=== PATIENT | male | born 1945 | race Caucasian/White ===

== ENCOUNTER 2016-06-05 00:41 | Emergency (ER) | payer MEDICARE, OTHER ==
[2016-06-05] VITALS (10 sets, daily range): BP systolic 99–127; BP diastolic 71–84; PULSE 76–101; RESP 10–20; O2SAT 93–99
[~2016-06-05] VITALS: Ht 180.3 cm; Wt 105.5 kg
[~2016-06-05 00:41] MED LIST: METH-313 PO
--- NOTE | 2016-06-05 01:16 | ED.REPORT ---
HPI-Back Pain 40 and Over Date of Service Jun 05, 2016 ED Provider: Dr. Manoj Kate D.O. A 70 year old male with a history of diabetes, COPD, heart disease, spinal stenosis, and chronic back pain presents to the ED with increased chronic upper and lower back pain this evening. The patient also reports chronic leg weakness , muscle spasms, and nausea secondary to pain. He denies pain with inspiration, chest pain, or cough. He has been taking oxycodone and morphine intermittently for pain but he is concerned about the risk for addiction. Today he is having pain and muscle spasm in his low back that seems to radiate up into his chest and to his abdomen. He denies having any ripping or tearing pain. Nursing Notes Stated Complaint: BACK PAIN Chief Complaint: Back Pain or Injury Nursing Notes Reviewed: Yes Allergies: Coded Allergies: No Known Allergies (Verified Allergy, Unknown, 06/05/16) Scheduled Methocarbamol (Robaxin-750) 750 Mg Tablet 1,500 MG PO QID General Time Seen by MD: 01:16 Chief Complaint Back pain Hx Obtained From: Patient Arrived By: Walk-in Sudden in Onset?: No Onset Occurred: Onset unknown (Chronic) Symptom Duration: Intermittent Caused by: Spontaneous/no mechanism Location: : Perispinal lumbar: Perispinal thoracic Quality: Painful Severity: Current: Moderate Severity: Maximum: Moderate Associated with: Reports: Nausea, Weakness both lower ext Pertinent Negative: Relieved by nothing Related History: Reports: Chronic back pain Recent Healthcare: No recent doctor visit Similar Sx Previous: Yes Past Medical History Past Medical History Diabetes COPD Heart Disease Spinal Stenosis Pneumothorax Past Surgical History Back surgery Smoking History Former Smoker Social History Alcohol Use: Denies alcohol use Drug Use: Denies drug use Ambulatory Status Independent Review of Systems Review of Systems Note: + muscle spasms Constitutional: Denies: Fever Respiratory: Denies: Dyspnea on exertion, Non-productive cough, Pleuritic pain Cardiovascular: Denies: Chest pain GI: Reports: Abdominal pain, Nausea Male: Denies Incontinence, Denies Urination decreased, Denies Urination increased Musculoskeletal: Reports: Back pain Neurologic: Reports: Weakness (Bilateral legs ), Denies: Bladder dysfunction, Bowel dysfunction, Numbness Complete sys rev & neg: except as marked. Physical Exam Initial Vital Signs Vital Signs (First) Date Time Temp Pulse Resp B/P Pulse Ox O2 Delivery O2 Flow Rate FiO2 06/05/16 00:48 101 20 127/82 97 Room Air 06/05/16 04:22 36.6 Initial VS: Reviewed Head / Eyes: Atraumatic, Normocephalic ENT: Conjunctiva normal, No scleral icterus Neck: Supple, Full range of motion Skin: Warm, Dry, No cyanosis Psychiatric: Mood/affect normal, Behavior normal, Normal thought content General/Constitutional: Awake, Alert, No acute distress Respiratory / Chest: Breath sounds NL, Breath sounds = bilat, No respiratory distress Cardiovascular: Heart rate NL, Regular rhythm, Heart sounds NL Abdomen: Soft Tenderness/Guarding/Rebound: Positive: Tender periumbilical (Right) Back: No midline vertebral tend Flank / Spine / Paraspinal: Positive: Lumbar paraspinal tend... (Right) Neurologic: Oriented X3, Speech NL, No motor deficits, No sensory deficits Interpretation & Diagnostics Interpretation & Diagnostics: Bedside bladder scan: >1L LUMBAR SPINE MRI IMPRESSION: 1. Multilevel degenerative disc disease. 2. Multilevel facet arthropathy. 3. Severe L4-L5 central canal stenosis. Moderate to severe L3-L4 central canal narrowing. Moderate L2-L3 central canal narrowing. 4. Mild bilateral L1-L2 neural foraminal narrowing. Moderate bilateral to L3 neural foraminal narrowing. Severe bilateral L3-L4 neural foraminal narrowing. Moderate right and severe left L4-L5 neural foraminal narrowing. Mild left L5- S1 neural foraminal narrowing. Dictated by: Ivone Randhawa MD, PhD on 06/05/2016 at 9:51 Approved by: Ivone Randhawa MD, PhD on 06/05/2016 at 9:51 Lab Results Interpretation Result Diagram: 06/05/16 0230 06/05/16 0230 Test 06/05/16 02:30 06/05/16 04:52 White Blood Count 8.4th/mm3 (3.8-10.1) Red Blood Count 4.48mil/mm3 (4.40-5.80) Hemoglobin 14.8g/dL (13.8-17.2) Hematocrit 41.4% (41.0-50.0) Mean Corpuscular Volume 92.4fL (81-100) Mean Corpuscular Hemoglobin 33.0pg (27.0-35.0) Mean Corpuscular Hemoglobin Concent 35.7% (32.0-37.0) Red Cell Distribution Width 12.9% (12.3-15.4) Platelet Count 150bil/L (150-400) Neutrophils (%) (Auto) 41.0% (40-74) Lymphocytes (%) (Auto) 46.7% (14-46) Monocytes (%) (Auto) 9.0% (4-12) Eosinophils (%) (Auto) 2.8% (0-5) Basophils (%) (Auto) 0.4% (0-3) D-Dimer < 0.5mg/L (<0.50) Sodium Level 136mEq/L (134-144) Potassium Level 3.9mEq/L (3.5-5.2) Chloride Level 97mEq/L (97-108) Carbon Dioxide Level 22mmol/L (18-29) Blood Urea Nitrogen 19mg/dL (8-27) Creatinine 0.79mg/dL (0.76-1.27) Estimat Glomerular Filtration Rate 103mL/min (>59) Glucose Level 271mg/dL (60-99) Calcium Level 9.2mg/dL (8.5-10.1) Total Bilirubin 0.9mg/dL (0.0-1.2) Aspartate Amino Transf (AST/SGOT) 38U/L (0-50) Alanine Aminotransferase (ALT/SGPT) 51U/L (0-44) Alkaline Phosphatase 93U/L (25-160) Troponin T 0.010ug/L (0.0-0.011) Total Protein 6.7g/dL (6.4-8.4) Albumin 3.7g/dL (3.4-5.0) Urine Color Yellow (YELLOW) Urine Appearance Clear (CLEAR,HAZY) Urine pH 6.0 (5.0-8.0) Urine Specific [place] 1.045 (1.003-1.035) Urine Protein Negativemg/dL (NEG,TRACE) Urine Glucose (UA) 1000mg/dL (NEGATIVE) Urine Ketones Negativemg/dL (NEGATIVE) Urine Occult Blood Negative (NEGATIVE) Urine Nitrite Negative (NEGATIVE) Urine Bilirubin Negative (NEGATIVE) Urine Urobilinogen Normalmg/dL (NORMAL) Urine Leukocyte Esterase Negative (NEGATIVE) Urine RBC 0-2/hpf (0-2) Urine WBC 0-5/hpf (0-5) Urine Epithelial Cells Few/hpf (NONE-MOD) Urine Crystals None seen (NONE SEEN) Urine Bacteria None/hpf (NONE-FEW) Urine Hyaline Casts None/lpf (NONE) Urine Granular Casts None seen (NONE SEEN) Urine Waxy Casts None seen (NONE SEEN) Urine Red Blood Cell Casts None seen (NONE SEEN) Urine White Blood Cell Casts None seen (NONE SEEN) Urine Mucus None seen (None Seen) Urine Trichomonas None seen (NONE SEEN) Urine Yeast None (NONE SEEN) Urinalysis Comment None Urine Culture Reflexed Not indicated Hold Urine Received (Received) ECG Interpretation ECG Interpretation: Sinus rhythm rate 83 Low voltage, extremity leads Time: 01:42 Interpreted by: ED physician CT Abd / Pelvis Interpretation CONCLUSION: Distended urinary bladder is nonspecific, may be physiologic, cannot rule out urinary retention. Mild prostatomegaly. Liver cyst and bilateral renal cysts. Radiologist: Elizabeth Walker MD 06/05/2016 - 3:58:45 AM PST Study type: Abdominal CT IV contrast Interpretation / Wet Read by: Interpret - Radiologist Re-Eval/Medical Decision Med Decision/Clinical Course 70-year-old with known spinal stenosis presents with odd back pain symptoms improved to have significant urinary retention that is new. He has no renal failure resulting. He is held this morning for MRI to exclude conus medullaris lesion. He is signed over at [address] Ayan Botello DO: I assumed care of this patient at 6 AM, awaiting an MRI. MRI is performed and discussed with the patient's primary neurosurgeon who feels the patient likely needs emergent decompression and spinal fusion which cannot be performed at this hospital. Neurosurgery recommends transfer to [facility]. Also the patient is transferred to [facility]. 70-year-old male with chronic spinal stenosis presents with low back pain radiating up his back. He states that he has oxycodone and morphine at home and he is not going to take these due to their addiction potential. He states the pain is pretty severe tonight and anytime she twists or falls asleep he feels spasm in his back. On examination vital signs are stable. Normal cardiopulmonary examination. He does have some periumbilical abdominal tenderness. I do not palpate a bruit. He has some paraspinal tenderness of the lower lumbar region. Range of motion of his back especially twisting worsens the pain. He does not have signs of an acute cauda equina syndrome. He has no saddle anesthesia, he has symmetric reflexes and he has excellent strength of his legs. He tells me that he has control of his rectum and he has been able to empty his bladder. The back pain radiating to his chest may well be related to thoracic spine disease however taking into account his age we performed an EKG. EKG does not show signs of ischemia. Regard to check a CBC comp is a metabolic panel troponin and d-dimer. I think the d-dimer is elevated and pulmonary emboli or aortic dissection needs to be looked into. N this is due to the fact that he has pain going up and down his back and into his thoracic spine. I dissection could certainly cause this. I have medicated with IV Toradol and is feeling much better. Laboratory work is pending at the time of this discharge. I will sign this case out to Dr. Cortez Prater. Source of Hx: Old records Re-Evaluation/Progress #1: Time of Eval: 02:10 Patient Status: Condition improved Re-Evaluation/Progress Note: Patient rechecked. Discussed diagnosis and plan for transfer of care to Dr. Prater. Patient agrees with plan for care and all questions were addressed. Re-Evaluation/Progress #2: Time of Eval: 04:08 Patient Status: Condition improved Re-Evaluation/Progress Note: Care assumed by Dr. Prater. Rechecked the patient. Discussed the results of his CT scan, with a distended bladder on CT scan. Patient was able to void when requested but stated that he did not feel the urge to go prior to being asked. The patient feels that he has emptied his bladder, producing 400cc. He denies urinary retention, urinary incontinence, bowel incontinence, numbess in his extremities, saddle numbness, or other complaints. He does often fall, which he states is due to his old back injury. Will bladder scan the patient. Re-Evaluation/Progress #3: Time of Eval: 04:53 Re-Evaluation/Progress Note: Patient was found to be retaining 1L urine on bladder scan. Catheter was placed. Patient was informed that due to his urinary retention he will need to have an MRI to rule out any acute process for his symptoms tonight. MRI will not occur until later this morning. Patient understands and agrees with this plan. All questions addressed. Re-Evaluation/Progress #4: Time of Eval: 13:55 Re-Evaluation/Progress Note: Informed the patient of the plan to transfer to [facility], per MRI results. Patient understands and agrees with this plan. All questions addressed. Consultation #1: Referral / Consult Name: нАдрей Tellez MD Consulted With: Neurosurgery Call Returned at: 10:20 Manager Security And Safety: Agrees with eval Note: Case discussed. Geoff will call back. Consultation #2: Referral / Consult Name: Андрей Tellez MD Consulted With: Neurosurgery Call Returned at: 10:32 Manager Security And Safety: Agrees with eval, Agrees with plan Note: Geoff called back. Question of C-spine lesion, plan to send patient to [facility], as would need fusion. Consultation #3: Referral / Consult Name: Андрей Tellez MD Consulted With: Neurosurgery Call Returned at: 11:40 Manager Security And Safety: Agrees with eval, Agrees with plan, Accepts admit Note: Dr. Rony Pearson at [facility] will accept patient. Consultation #4: Call Returned at: 13:35 Manager Security And Safety: Agrees with eval, Agrees with plan Note: Transfer center called back and patient can be sent down. Counseled Regarding: Diagnosis, Lab results, Need for transfer Discharge & Departure Shift Change Sign-Out Patient Care Transferred: Yes (Dr. Prater) Discussed Complaint(s): Yes Laboratory Evaluation: Ordered, not yet done Response to Therapy: Improved Additonal Information: Awaiting MRI Impression: Primary Impression: Low back pain Chronicity: chronic Back pain laterality: midline Sciatica presence: with sciatica Sciatica laterality: bilateral sciatica Qualified Code: M54.41 - Lumbago with sciatica, right side Additional Impressions: Mid back pain Urinary retention Disposition: Transfer, Acute Care Facility Receiving Hospital: [facility] Transfer Accepted: Yes Transfer Reason: Higher level of care Spoke with: Specialty physician Patient Status: Stable Patient Informed: Yes Discharge Condition All VS Reviewed: Yes Condition: Stable Patient Instructions: Urinary Retention in Men (ED) Referrals: [facility] Care Transferred to: Dr. Prater 0300 Dr. Botello 0600 Scribe Attestation Portions of this note were transcribed by Colette Dolan and Kenzie Chavez. I, Dr. Kate and Dr. Prater, personally performed the history, physical exam, and medical decision-making; I reviewed and confirmed the accuracy of the information in the transcribed note. Signed by: Tomasa Nuñez, 06/05/2016, 02:45 Signed by: Tomasa Greenberg, 06/05/2016, 23:05 copies to: [facility] Manoj Kate DO Jun 05, 2016 01:16 COLETTE DOLAN Jun 05, 2016 01:30 Kenzie Chavez Jun 05, 2016 03:31 Cortez Prater MD Jun 05, 2016 06:17 TIMMY ESQUIVEL Jun 05, 2016 15:04 Pawel Botello DO Jun 05, 2016 15:13
[2016-06-05 02:37] LABS: BASOPHILS % (AUTO) 0.4 % (0-3); EOSINOPHILS % (AUTO) 2.8 % (0-5); Mean Corpuscular Volume 92.4 fL (81-100); Platelet Count 150 bil/L (150-400)
[2016-06-05 03:11] LABS: TROPONIN T 0.01 ug/L (0.0-0.011)
[2016-06-05] MEDS ORDERED: Lidocaine 2% 5 mL Urojet Topical Jelly Syringe MUC_MEMBRM ONE (04:25)
[2016-06-05] MEDS ORDERED: Lidocaine 2% 6mL Topical Jelly ONE (04:28)
[2016-06-05 07:47] LABS: APPEARANCE,URINE CLEAR (CLEAR,HAZY); COLOR,URINE YELLOW (YELLOW); OCCULT BLOOD,URINE NEGATIVE (NEGATIVE); UROBILINOGEN,URINE NORMAL (NORMAL)
--- NOTE | 2016-06-05 08:32 | DRSVH ---
PROCEDURE: CT ABDOMEN AND PELVIS WITH CONTRAST ([id number]) INDICATIONS: abdo pain TECHNIQUE: After the administration of intravenous contrast, 5 mm thick sections acquired from the diaphragm to the symphysis. 5 mm coronal and sagittal reformats were acquired. For radiation dose reduction, the following was used: automated exposure control, adjustment of mA and/or kV according to patient siz e. COMPARISON: None. FINDINGS: Image quality: Excellent. ABDOMEN: Lung bases: 3 mm nodules noted along the right minor fissure on series 3 image 2, 2 mm nodules presen t in the right middle lobe on series 3 image one. No priors are available for comparison. Solid organs: Liver is enlarged with fatty infiltration. The spleen is normal in size. 4.0 cm low at tenuation anterior hepatic focus most suggestive of cyst. Gallbladder has been removed. Biliary sys tem is non dilated. Pancreas enhances normally. No adrenal nodules. Kidneys demonstrate normal siz e and enhancement, without hydronephrosis. Bilateral renal cysts are present. Peritoneum and bowel: Bowel loops demonstrate normal wall thickness and caliber. No free fluid or a ir. Nodes and vessels: No retroperitoneal or mesenteric adenopathy by size criteria. Aorta and inferior vena cava are normal in size. Miscellaneous: No ventral hernias. PELVIS: Genitourinary: Bladder wall markedly distended. The prostate gland is mildly enlarged. Miscellaneous: No inguinal hernias or adenopathy. Bones: No suspicious bony lesions. No vertebral body compression fractures. IMPRESSION: 1. No visualize cause of acute abdominal pain. 2. Mild hepatomegaly with steatosis. 3. Markedly distended bladder as well as prostate enlargement. Recommend clinical correlation of pote ntial outlet obstruction. 4. Hepatic and renal cysts. 5. Nonspecific subcentimeter pulmonary nodules as above without priors available for comparison. Dwight mmend interval followup is below. Fleischner Society criteria for lung nodule followup. Nodule size (mm)Low-risk patientHigh-risk patient<=4No follow-up needed.Follow-up at 12 months; if no change, no further follow-up.>7-3Dxehjy-op CT at 12 months; if no change, no further follow-up neede d.Initial follow-up CT at 6-12 months, then 18-24 months if no change.>6-8Initial follow-up CT at 6- 12 months, then 18-24 months if no change.Initial follow-up CT at 3-6 months, then 9-12 months and 24 months if no change.>8Follow-up CT at 3,9 and 24 months or PET and/or biopsySame as for low-risk patientsNon-solid (ground-glass) or partly solid nodules may require longer follow-up to exclude indolent adenocarcinoma. Dictated by: Chrissy Farrell M.D. on 06/05/2016 at 8:30 Approved by: Chrissy Farrell M.D. on 06/05/2016 at 8:30
--- NOTE | 2016-06-05 09:53 | DRSVH ---
PROCEDURE: MRI LUMBAR SPINE WITHOUT CONTRAST ([id number]) INDICATIONS: acute urinary retention, chronic back pain TECHNIQUE: Noncontrast sagittal T1 spin echo and T2 fast echo, sagittal STIR, axial T1 and T2 fast spin echo thr ough the lumbar spine. In cases with scoliosis, additional coronal T2 fast spin echo may be performe d. COMPARISON: [facility], CT, CT LUMBAR SPINE WO CON, 01/26/2016, 12:18. Outside Film, MR, MR LUMBAR SPINE WO CON, 10/21/2011, 13:03. Outside Film, MR, MR LUMBAR SPINE WO CON, 11/02/2012, 16:4 8. [facility], MR, MR LUMBAR SPINE W&WO CON, 10/05/2015, 13:41. [facility], CR, XR LUMBAR SPINE LAT FL EX 3VW, 04/19/2016, 10:42. FINDINGS: Image quality: Excellent. Alignment and Curvature: There is mild L2-L3 and L3 on L4 retrolisthesis. There is mild L4-L5 mendoza listhesis. Convex left curvature lumbar spine is stable compared to prior CT scan. Bone Marrow: Reactive endplate change is noted adjacent to the L1-L2, L2-L3, L3-L4, L4-L5 and L5-S1 d iscs. No acute vertebral body compression fractures. Spinal Cord: Conus medullaris terminates at the L1 level. Visualized cord demonstrates normal signa l and size. Paraspinous Soft Tissues: No paravertebral masses. L1-L2: Loss of disc signal and height. Mild, diffuse disc bulge with small central disc extrusion sup erimposed upon diffuse disc bulge. Mild bilateral facet hypertrophy. No central stenosis. Mild bilate ral neural foraminal narrowing. No neural impingement. L2-L3: Loss of disc signal and height. Mild, diffuse disc bulge and small right central disc extrusio n superimposed upon diffuse disc bulge. Mild facet and mild ligamentum flavum hypertrophy. Moderate n arrowing of the central canal secondary to disc disease and posterior element hypertrophy. Moderate b ilateral neural foraminal narrowing secondary to disc and facet disease. No neural impingement. L3-L4: Loss of disc signal and height. Moderate, diffuse disc bulge. Mild facet and moderate ligament um flavum hypertrophy. Moderate to severe narrowing of the central canal secondary to disc disease an d posterior element hypertrophy. Severe bilateral neural foraminal narrowing secondary to disc and fa cet disease with flattening deformity the L3 nerve roots bilaterally. L4-L5: Loss of disc signal. Mild, diffuse disc bulge. Small central disc protrusion superimposed on d iffuse associated severe facet and ligamentum flavum hypertrophy. Severe central stenosis secondary t o disc disease and posterior element hypertrophy. Moderate right and severe left neural foraminal deb rowing degenerative disc and facet disease with flattening deformity exiting left L4 nerve root. L5-S1: Near complete loss of the substance. Minimal, diffuse disc bulge. Posterior osseous fusion is noted. No central stenosis. Mild left neural foraminal narrowing secondary to disc disease. No neural impingement. IMPRESSION: 1. Multilevel degenerative disc disease. 2. Multilevel facet arthropathy. 3. Severe L4-L5 central canal stenosis. Moderate to severe L3-L4 central canal narrowing. Moderate L2 -L3 central canal narrowing. 4. Mild bilateral L1-L2 neural foraminal narrowing. Moderate bilateral to L3 neural foraminal narrowi ng. Severe bilateral L3-L4 neural foraminal narrowing. Moderate right and severe left L4-L5 neural fo raminal narrowing. Mild left L5-S1 neural foraminal narrowing. Dictated by: Ivone Randhawa MD, PhD on 06/05/2016 at 9:51 Approved by: Ivone Randhawa MD, PhD on 06/05/2016 at 9:51
== END 2016-06-05 15:09 | disposition short-term general hospital (02) ==
LOC: SED 00:41
DX: M54.41 Lumbago with sciatica, right side (principal); M54.42 Lumbago with sciatica, left side; R33.9 Retention of urine, unspecified; R53.1 Weakness; M62.830 Muscle spasm of back; R11.0 Nausea; J44.9 Chronic obstructive pulmonary disease, unspecified; E11.9 Type 2 diabetes mellitus without complications; Z87.891 Personal history of nicotine dependence
CPT/HCPCS: 36415; 51702; 72148; 74177; 80053; 81000; 82948; 84484; 85025; 85379; 93005; 96374; 99285; Q9967

== ENCOUNTER 2016-08-05 08:09 | Emergency (ER) | payer OTHER ==
[~2016-08-05] VITALS: Ht 180.3 cm; Wt 102.7 kg
[2016-08-05 08:14] VITALS: BP 129/85; PULSE 81; RESP 18; O2SAT 98
--- NOTE | 2016-08-05 08:29 | ED.REPORT ---
HPI-Recheck W/B/S Date of Service Aug 05, 2016 ED Provider: John Conway MD 70 year old male with a history of spinal stenosis presents to the ER requesting staple and suture removal status post back surgery 06/06/2016. He was seen in follow-up with an TRAFFIC REPORTER and later found out that she was supposed to remove his sutures/bryon at that appointment. Patient was then seen by his primary care provider for similar, but his doctor declined to remove sutures/ bryon that were not placed by him. Next month he has a follow-up appointment with his surgeon. Nursing Notes Stated Complaint: SUTURE REMOVAL Chief Complaint: Wound Recheck/Suture Removal Nursing Notes Reviewed: Yes Allergies: Coded Allergies: No Known Allergies (Verified Allergy, Unknown, 06/05/16) Scheduled Methocarbamol (Robaxin-750) 750 Mg Tablet 1,500 MG PO QID General Time Seen by Provider: 08:28 Chief Complaint Wound check, Suture removal, Staple removal Hx Obtained From: Patient Arrived By: Walk-in Past Medical History Past Medical History Diabetes COPD Heart Disease Spinal Stenosis Pneumothorax Past Surgical History Back surgery Smoking History Former Smoker Social History Alcohol Use: Denies alcohol use Drug Use: Denies drug use Ambulatory Status Independent Review of Systems Constitutional: Denies: Chills, Fever Skin: Denies Diaphoresis Complete sys rev & neg: except as marked. GI: Denies: Nausea, Vomiting Musculoskeletal: Reports: Back pain, Lumbar pain Physical Exam Initial Vital Signs Vital Signs (First) Date Time Temp Pulse Resp B/P Pulse Ox O2 Delivery O2 Flow Rate FiO2 08/05/16 08:14 36.1 81 18 129/85 98 Initial VS: Reviewed General/Constitutional: Well-developed, Well-nourished Head / Eyes: Atraumatic, Normocephalic Neck: Supple, Non-tender, Full range of motion Neurologic: Alert, Oriented, Nonfocal Psychiatric: Mood/affect normal, Behavior normal, Normal thought content Back: Full range of motion 10cm well-healed midline scar with bryon 2cm laterally to the Right at the bottom. Upper Extremity / MS: Atraumatic, Full range of motion, Neurologic intact, Vascular intact Lower Extremity / Pelvis / MS: Atraumatic, Full range of motion, Neurologic intact, Vascular intact Procedures Suture Removal Time: 08:48 Procedure Performed by: ED physician Wound Condition: Good healing, No sign of infection Number Removed: Removed bryon (2), Removed sutures (running stitch approximately 10cm) Re-Eval/Medical Decision Re-Evaluation/Progress : Time of Eval: 08:49 Re-Evaluation/Progress Note: Completed suture and staple removal. Discussed plan to discharge. Patient is amenable to the plan. Return precautions given. All other questions addressed. Counseled Regarding: Diagnosis, Need for follow-up, When/why to return to ED Discharge & Departure Departure Notes Surgery performed in late May. Wound is well-healed. Zavalla and sutures removed without difficulty. Impression: Primary Impression: Encounter for wound re-check Disposition: Home Discharge Condition All VS Reviewed: Yes Condition: Stable Referrals: NOPCP (PCP) Scribe Attestation Portions of this note were transcribed by Iron Alexandre. I, Dr. Conway, personally performed the history, physical exam and medical decision-making; I reviewed and confirmed the accuracy of the information in the transcribed note. Signed by: Tomasa Antony, 08/05/2016 and 08:54 John Conway MD Aug 05, 2016 08:29 IRON ALEXANDRE Aug 05, 2016 08:36
== END 2016-08-05 09:12 | disposition home or self-care (01) ==
LOC: SED 08:09
DX: Z48.02 Encounter for removal of sutures (principal)

== ENCOUNTER 2016-08-19 05:00 | Emergency (ER) | payer OTHER ==
[2016-08-19 05:10] VITALS: BP 130/86; PULSE 89; RESP 18; O2SAT 97
--- NOTE | 2016-08-19 06:16 | ED.REPORT ---
HPI-Back Pain 40 and Over Date of Service Aug 19, 2016 ED Provider: Mariposa Cisse MD The patient is a 71 year old male with history of chronic back and neck pain with spinal stenosis, and diabetes mellitus on insulin, who presents to the emergency department complaining of a headache, neck pain, and lower back pain. He was seen here in May for worsening back pain and was transferred to [facility] for emergency surgery. He was previously on morphine and 5 mg oxycodone for pain. He felt that the doses were too much and when they didn't change this he complained and was then completely cut off. He has been out of his medication for the last 2 weeks. He states that he was actually only taking about 1 hydrocodone every other day. Today he presents to the emergency department complaining of pain that has been worsening over the last few weeks. He is requesting something to relieve this pain. He denies any known injury or trauma. The pain does not radiate anywhere else. He has experienced some nausea. He denies fever, vomiting, weakness, numbness, bladder incontinence or bowel incontinence. He has been self catheterizing at home sine the surgery. Nursing Notes Stated Complaint: NECK AND BACK PAIN Chief Complaint: Back Pain or Injury Nursing Notes Reviewed: Yes Allergies: Coded Allergies: No Known Allergies (Verified Allergy, Unknown, 06/05/16) Scheduled Methocarbamol (Robaxin-750) 750 Mg Tablet 1,500 MG PO QID General Time Seen by MD: 05:14 Chief Complaint Back pain, Neck pain, Other (headache) Hx Obtained From: Patient Arrived By: Walk-in Sudden in Onset?: No Onset Occurred: More than a week ago... Symptom Duration: Since onset Location: : Perispinal lumbar Quality: Painful Radiation: : Does not radiate Severity: Current: Moderate Severity: Maximum: Severe Recent Healthcare: No recent hospitalization, Recent doctor visit Similar Sx Previous: Yes Past Medical History Past Medical History Diabetes COPD Heart Disease Hx of TIA Spinal Stenosis Pneumothorax Hypertension High cholesterol Past Surgical History Back surgery Family History Noncontributory Smoking History Former Smoker Social History Alcohol Use: Denies alcohol use Drug Use: Denies drug use Other Social History: Local resident Ambulatory Status Walker Review of Systems Constitutional: Denies: Fever GI: Reports: Vomiting, Denies: Abdominal pain, Nausea Musculoskeletal: Reports: Back pain, Neck pain, Denies: Extremity pain Neurologic: Reports: Headache, Denies: Bladder dysfunction, Bowel dysfunction, Focal weakness, Numbness Complete sys rev & neg: except as marked. Physical Exam Initial Vital Signs Vital Signs (First) Date Time Temp Pulse Resp B/P Pulse Ox O2 Delivery O2 Flow Rate FiO2 08/19/16 05:10 37.0 89 18 130/86 97 Room Air Initial VS: Reviewed Head / Eyes: Atraumatic, Normocephalic, PERRL ENT: Mucous membranes moist, Conjunctiva normal, No scleral icterus Extremities: Vascular intact, Neuro intact, No swelling, No tenderness Skin: Warm, Dry, No cyanosis Psychiatric: Mood/affect normal, Behavior normal, Normal thought content General/Constitutional: Awake, Alert Respiratory / Chest: Atraumatic, Breath sounds NL, Breath sounds = bilat, No respiratory distress, No rales, No rhonchi, No wheezing Cardiovascular: Heart rate NL, Regular rhythm, Heart sounds NL, No gallop, No murmurs, No rubs, Peripheral circulation NL Abdomen: Atraumatic, Soft, Non-tender, No guarding, No rebound, No distention, No palpable mass, No pulsatile mass Back: No midline vertebral tend Lumbar surgical site is healing nicely. No midline tenderness. Bilateral lumbar paraspinal tenderness. Neurologic: Oriented X3, Speech NL Neck: Supple, No midline vertebral tend Bilateral trapezius muscle spasms. Tenderness at the occipital insertion bilaterally. Wrist / Hand: No swelling Right hand: ulnar wasting present Re-Eval/Medical Decision Source of Hx: Old records Re-Evaluation/Progress #1: Time of Eval: 06:39 Re-Evaluation/Progress Note: Discussed exam findings, diagnosis, and plan for pain control and discharge. All questions were addressed. Re-Evaluation/Progress #2: Time of Eval: 07:50 Re-Evaluation/Progress Note: The patient left prior to getting his discharge instructions and prescription. He apparently was satisfied with the pain shot. Counseled Regarding: Diagnosis, Need for follow-up, When/why to return to ED Discharge & Departure Impression: Primary Impression: Chronic back pain Back pain location: low back pain Back pain laterality: bilateral Sciatica presence: without sciatica Qualified Code: M54.5 - Low back pain Additional Impressions: Cervical pain (neck) Cervical radiculopathy Headache Headache type: unspecified Headache chronicity pattern: unspecified pattern Intractability: not intractable Qualified Code: R51 - Headache Disposition: Home Discharge Condition All VS Reviewed: Yes Condition: Stable Additional Instructions: The patient left without instructions or any take home medications. [facility] Tomasa Attestation Portions of this note were transcribed by Eladia Mercado. I, Dr. Cisse personally performed the history, physical exam and medical decision-making; I reviewed and confirmed the accuracy of the information in the transcribed note. Signed by: Tomasa Trujillo, 08/19/2016 at 0805. copies to: [facility] Mariposa Cisse MD Aug 19, 2016 06:16 Eladia Mercado Aug 19, 2016 06:20
== END 2016-08-19 07:45 | disposition home or self-care (01) ==
LOC: SED 05:00
DX: M54.5 Low back pain (principal); M54.12 Radiculopathy, cervical region; R51 Headache; J44.9 Chronic obstructive pulmonary disease, unspecified; E11.9 Type 2 diabetes mellitus without complications; I10 Essential (primary) hypertension; E78.5 Hyperlipidemia, unspecified; Z98.890 Other specified postprocedural states; Z87.891 Personal history of nicotine dependence; Z79.4 Long term (current) use of insulin
CPT/HCPCS: 96372; 99283; J1885